=== PATIENT | female | born 1990 | race Two or more races ===

== ENCOUNTER 2022-10-08 10:24 | Outpatient (CLI) | payer OTHER | END 2022-10-08 12:04 | disposition home or self-care (01) | LOC: PRENATAL 10:24 | PROVIDERS: ATTEND Obstetrics & Gynecology Maternal & Fetal Medicine | DX: O36.80X0 Pregnancy with inconclusive fetal viability, not applicable or unspecified (principal); Z36.9 Encounter for antenatal screening, unspecified; O34.10 Maternal care for benign tumor of corpus uteri, unspecified trimester; Z3A.12 12 weeks gestation of pregnancy ==

== ENCOUNTER 2022-12-13 09:22 | Outpatient (CLI) | payer OTHER | END 2022-12-13 10:37 | disposition home or self-care (01) | LOC: PRENATAL 09:22 | PROVIDERS: ATTEND Obstetrics & Gynecology Maternal & Fetal Medicine | DX: O35.3XX0 Maternal care for (suspected) damage to fetus from viral disease in mother, not applicable or unspecified (principal); O34.10 Maternal care for benign tumor of corpus uteri, unspecified trimester; O44.00 Complete placenta previa NOS or without hemorrhage, unspecified trimester; Z3A.21 21 weeks gestation of pregnancy ==

== ENCOUNTER 2023-04-09 14:00 | Inpatient (IN) | payer OTHER ==
[~2023-04-09] VITALS: Ht 157.5 cm; Wt 88.5 kg
[2023-04-19] MEDS ORDERED: IRON325 MG PO (23:19)
[2023-04-19] MEDS ORDERED: PRENATAL TABLE1 EAC1 PO (23:19)
[2023-04-19] MEDS ORDERED: FOLIC ACID20 MG PO (23:20)
[2023-04-22] MEDS ORDERED: RINGERS SOLUTION,LACTATED 1,000 ML IV SCH (00:45)
[2023-04-22] MEDS ORDERED: OXYTOCIN 500 ML IV ONE (10:15)
[2023-04-22] MEDS ORDERED: CHLORHEXIDINE GLUCONATE 120 ML BOTTLE TOP ONE (12:32)
[2023-04-22] MEDS ORDERED: ERYTHROMYCIN BASE 1 GM TUBE OP ONE (12:32)
[2023-04-22] MEDS ORDERED: METHYLERGONOVINE MALEATE 0.2 MG/ML AMPUL ONE (17:28)
[2023-04-22] MEDS ORDERED: CARBOPROST TROMETHAMINE 250 MCG/ML AMPUL IM ONE (18:27)
[2023-04-22] MEDS ORDERED: LIDOCAINE HCL 1% 200MG/20ML VIAL IJ ONE (18:35)
[2023-04-22] MEDS ORDERED: LIDOCAINE HCL 1% 200MG/20ML VIAL IJ SCH (19:15)
[2023-04-22] MEDS ORDERED: OXYTOCIN 10 UNITS/ML VIAL IM STA (19:15)
[2023-04-22] MEDS ORDERED: CHLORHEXIDINE GLUCONATE 120 ML BOTTLE TP SCH (19:15)
[2023-04-22] MEDS ORDERED: METHYLERGONOVINE MALEATE 0.2 MG/ML AMPUL IV STA (19:15)
[2023-04-22] MEDS ORDERED: ERYTHROMYCIN BASE 1 GM TUBE OP SCH (19:15)
[2023-04-22] MEDS ORDERED: CARBOPROST TROMETHAMINE 250 MCG/ML AMPUL IM STA (19:15)
[2023-04-22] MEDS ORDERED: DOCUSATE SODIUM 100MG CAP PO SCH (19:16)
[2023-04-22] MEDS ORDERED: CEFAZOLIN SODIUM 1,000 MG VIAL IV SCH (19:30)
[2023-04-23 06:32] LABS: HEMATOCRIT 36.1 % (36.0-45.00); HEMOGLOBIN 12.2 g/dL (12.0-15.00); MEAN CELL VOLUME 83.1 fL (80.00-100.00); MEAN CORPUSCULAR HEMOGLOBIN 28.2 pg (27.00-32.0); MEAN CORPUSCULAR HGB CONC 33.9 g/dl (32.0-36.0); RED BLOOD COUNT 4.34 M/uL (4.00-6.00); RED CELL DISTRIBUTION WIDTH 16.2 % (11.5-14.5)
[2023-04-23 08:31] LABS: PLATELET COUNT 147 K/uL (150-450)
[2023-04-23] MEDS ORDERED: FERROUS SULFATE 325 MG TABLET.EC PO SCH (09:00)
[2023-04-23] MEDS ORDERED: BENZOCAINE/MENTHOL 90 ML BOTTLE TOP SCH (09:00)
[2023-04-23] MEDS ORDERED: AMPICILLIN SODIUM 2,000 MG VIAL IV SCH (14:15)
[2023-04-23] MEDS ORDERED: METRONIDAZOLE/SODIUM CHLORIDE 500 MG/100 ML PIGGYBACK IV ONE (14:15)
[2023-04-23 15:35] LABS: HEMATOCRIT 33.9 % (36.0-45.00); HEMOGLOBIN 11.2 g/dL (12.0-15.00); MEAN CELL VOLUME 84.3 fL (80.00-100.00); MEAN CORPUSCULAR HEMOGLOBIN 27.8 pg (27.00-32.0); PLATELET COUNT 165 K/uL (150-450); RED BLOOD COUNT 4.02 M/uL (4.00-6.00); RED CELL DISTRIBUTION WIDTH 15.9 % (11.5-14.5)
[2023-04-23] MEDS ORDERED: GENTAMICIN SULFATE 40 MG/ML VIAL IV SCH (17:00)
[2023-04-24 06:17] LABS: HEMATOCRIT 28.4 % (36.0-45.00); HEMOGLOBIN 9.5 g/dL (12.0-15.00); MEAN CELL VOLUME 83.2 fL (80.00-100.00); MEAN CORPUSCULAR HEMOGLOBIN 27.9 pg (27.00-32.0); MEAN CORPUSCULAR HGB CONC 33.5 g/dl (32.0-36.0); PLATELET COUNT 147 K/uL (150-450); RED BLOOD COUNT 3.42 M/uL (4.00-6.00); RED CELL DISTRIBUTION WIDTH 16.1 % (11.5-14.5)
[2023-04-25 07:19] LABS: HEMATOCRIT 31.6 % (36.0-45.00); HEMOGLOBIN 10.6 g/dL (12.0-15.00); MEAN CELL VOLUME 84.6 fL (80.00-100.00); MEAN CORPUSCULAR HEMOGLOBIN 28.2 pg (27.00-32.0); MEAN CORPUSCULAR HGB CONC 33.4 g/dl (32.0-36.0); PLATELET COUNT 157 K/uL (150-450); RED BLOOD COUNT 3.74 M/uL (4.00-6.00); RED CELL DISTRIBUTION WIDTH 15.7 % (11.5-14.5)
== END 2023-04-25 19:07 | disposition home or self-care (01) | DRG 805 ==
LOC: LDR 04-21 14:00 → OB/GYN 04-22 20:10
PROVIDERS: ADMIT Obstetrics & Gynecology; ATTEND Obstetrics & Gynecology
PROC: 10D07Z6 Extraction of Products of Conception, Vacuum, Via Natural or Artificial Opening (ICD-10-PCS; principal; 2023-04-22)
PROC: 0KQM0ZZ Repair Perineum Muscle, Open Approach (ICD-10-PCS; 2023-04-22)
PROC: 0W8NXZZ Division of Female Perineum, External Approach (ICD-10-PCS; 2023-04-22)
PROC: 4A1HXCZ Monitoring of Products of Conception, Cardiac Rate, External Approach (ICD-10-PCS; 2023-04-22)
DX: O70.1 Second degree perineal laceration during delivery (principal); O41.1230 Chorioamnionitis, third trimester, not applicable or unspecified; Z37.0 Single live birth; O66.5 Attempted application of vacuum extractor and forceps; Z3A.40 40 weeks gestation of pregnancy; Z20.822 Contact with and (suspected) exposure to COVID-19

== ENCOUNTER 2023-04-19 22:50 | Outpatient (CLI) | payer OTHER ==
[~2023-04-19] VITALS: Ht 157.5 cm; Wt 88.5 kg
[2023-04-19] MEDS ORDERED: RINGERS SOLUTION,LACTATED 1,000 ML IV SCH (23:00)
[2023-04-19] MEDS ORDERED: IRON325 MG PO (23:19)
[2023-04-19] MEDS ORDERED: PRENATAL TABLE1 EAC1 PO (23:19)
[2023-04-19] MEDS ORDERED: FOLIC ACID20 MG PO (23:20)
[2023-04-19 23:51] LABS: HEMATOCRIT 39.2 % (36.0-45.00); HEMOGLOBIN 12.9 g/dL (12.0-15.00); MEAN CELL VOLUME 84.7 fL (80.00-100.00); MEAN CORPUSCULAR HEMOGLOBIN 27.9 pg (27.00-32.0); MEAN CORPUSCULAR HGB CONC 32.9 g/dl (32.0-36.0); PH,URINE 6.5 (5.0-8.0); PLATELET COUNT 138 K/uL (150-450); RED BLOOD COUNT 4.63 M/uL (4.00-6.00); RED CELL DISTRIBUTION WIDTH 15.9 % (11.5-14.5); URINE APPEARANCE Clear; URINE BILIRRUBIN Negative (NEGATIVE); URINE BLOOD Negative; URINE COLOR Yellow; URINE GLUCOSE Negative (NEGATIVE); URINE LEUKOCYTE Negative; URINE NITRATE Negative; URINE PROTEIN Negative (NEGATIVE); URINE UROBILINOGEN 0.2 E.U./dl
[2023-04-19 23:54] LABS: URINE BACTERIA 381.6 uL (0.0-1933); URINE EPITHELIAL CELLS 10.8 uL (0.0-38.8); URINE RBC 3.8 uL (0.0-20.8)
[2023-04-20 00:04] LABS: ALBUMIN 2.9 gm/dL (3.4-5.0); BILIRUBIN TOTAL 0.27 mg/dL (0.3-1.2); CALCIUM 9.3 mg/dL (8.5-10.1); CREATININE SERUM 0.7 mg/dL (0.55-1.02); GFR 96.97; POTASSIUM 3.71 mEq/L (3.5-5.1); TOTAL PROTEIN 5.9 gm/dL (6.4-8.2)
[2023-04-20 00:05] LABS: INR < 0.93; PARTIAL THROMBOPLASTIN TIME 29.3 SECONDS (22.0-34.0); PROTHROMBIN TIME 9.8 SECONDS (9.0-11.5)
== END 2023-04-20 14:25 | disposition home or self-care (01) ==
LOC: OBS/DEL 22:50 → LDR 23:21 → OBS/DEL 04-20 03:35
PROVIDERS: ATTEND Obstetrics & Gynecology
DX: O26.893 Other specified pregnancy related conditions, third trimester (principal); O63.9 Long labor, unspecified; Z3A.39 39 weeks gestation of pregnancy